=== PATIENT | male | born 1940 | race Two or more races ===

== ENCOUNTER 2020-11-16 11:00 | Outpatient (CLI) | payer MEDICARE | END 2020-11-16 23:59 | disposition home or self-care (01) | LOC: WOU 11:00 | PROVIDERS: ATTEND Podiatrist Foot & Ankle Surgery | DX: M79.671 Pain in right foot (principal); M25.571 Pain in right ankle and joints of right foot; R60.0 Localized edema; E11.9 Type 2 diabetes mellitus without complications; Z79.84 Long term (current) use of oral hypoglycemic drugs; I10 Essential (primary) hypertension; Z79.01 Long term (current) use of anticoagulants | CPT/HCPCS: 73600; 73630; G0463 ==

== ENCOUNTER 2020-11-23 10:04 | Outpatient (CLI) | payer MEDICARE | END 2020-11-23 23:59 | disposition home or self-care (01) | LOC: WOU 10:04 | PROVIDERS: ATTEND Podiatrist Foot & Ankle Surgery | DX: M19.271 Secondary osteoarthritis, right ankle and foot (principal); R60.0 Localized edema; M79.671 Pain in right foot; M25.571 Pain in right ankle and joints of right foot; Z79.01 Long term (current) use of anticoagulants | CPT/HCPCS: G0463 ==

== ENCOUNTER 2020-12-01 13:00 | Outpatient (CLI) | payer MEDICARE | END 2020-12-01 23:59 | disposition home or self-care (01) | LOC: WOU 13:00 | PROVIDERS: ATTEND Podiatrist Foot & Ankle Surgery | DX: M19.271 Secondary osteoarthritis, right ankle and foot (principal); R60.0 Localized edema; M25.671 Stiffness of right ankle, not elsewhere classified; M25.571 Pain in right ankle and joints of right foot; E11.9 Type 2 diabetes mellitus without complications; Z79.84 Long term (current) use of oral hypoglycemic drugs; I10 Essential (primary) hypertension; Z79.01 Long term (current) use of anticoagulants | CPT/HCPCS: G0463 ==